=== PATIENT | male | born 1980 | race Asian ===

== ENCOUNTER 2022-11-25 20:37 | Emergency (ER) | payer SELFPAY ==
[~2022-11-25] VITALS: Ht 170.2 cm; Wt 70.3 kg
[2022-11-25 20:37] VITALS: BP 137/85
--- NOTE | 2022-11-25 20:38 | NUR ---
PT ZAIN ALS. TAKEN TO BED 5
[2022-11-25] MEDS ORDERED: levETIRAcetam 1,000 MG in NACL 0.9% 100 ML IV ONE (20:50)
--- NOTE | 2022-11-25 20:50 | NUR ---
PATIENT REFUSED IV AND KEPPRA. JANETH AWARE. MARCE ALSO REFUSED PO MEDS. STATED THAT HE TAKES SCHEDULED MEDS AT HOME AND DOESNT NEEDS ANYTHING
[2022-11-25 20:56] VITALS: BP 137/85
--- NOTE | 2022-11-25 21:03 | NUR ---
Patient does not wish to proceed with medical care recommended by KEERTHI. Patient given information related to possible complications, up to and including , which could occur as a result of leaving hospital at this time. Patient verbalizes understanding of risks involved leaving against medical advice. Patient has signed AMA form.
== END 2022-11-25 21:03 | disposition left against medical advice (07) ==
LOC: MED 20:37
DX: R56.9 Unspecified convulsions (principal)
CPT/HCPCS: 99283; J1953